=== PATIENT | male | born 1980 | race American Indian/Alaskan Native ===

== ENCOUNTER 2016-11-23 02:30 | Emergency (ER) | payer SELFPAY ==
[2016-11-23 03:31] VITALS: O2SAT 97
[2016-11-23 06:02] VITALS: BP 97/57; PULSE 86; RESP 16; TEMP 97.5
--- NOTE | 2016-11-23 06:06 | C.PDOC ---
History Of Present Illness Patient is a 36 year old male brought to the ER by EMS after he was found intoxicated in front of his friend's porch. Patient is arousable and has no physical complaints at this time. Time Seen by Provider: 11/23/16 03:49 Chief Complaint (Nursing): Dizziness/Lightheaded History Per: Patient History/Exam Limitations: no limitations Onset/Duration Of Symptoms: Hrs Current Symptoms Are (Timing): Still Present Seizure Or Post-ictal Symptoms: None Fall Associated With With Symptoms: No Past Medical History Reviewed: Historical Data, Nursing Documentation, Vital Signs Vital Signs: Last Vital Signs Temp 97.5 F L 11/23/16 06:01 Pulse 86 11/23/16 06:01 Resp 16 11/23/16 06:01 BP 97/57 L 11/23/16 06:01 Pulse Ox 97 11/23/16 06:15 - Medical History PMH: No Chronic Diseases Surgical History: No Surg Hx Family History: States: Unknown Family Hx - Social History Hx Alcohol Use: Yes Hx Substance Use: Yes - Immunization History Hx Tetanus Toxoid Vaccination: No Hx Influenza Vaccination: No Hx Pneumococcal Vaccination: No Review Of Systems Constitutional: Negative for: Fever, Chills Gastrointestinal: Negative for: Nausea, Vomiting, Diarrhea Physical Exam - Physical Exam Appears: Non-toxic, Other (Sleepy but arousable) Skin: Normal Color, Warm, Dry Head: Atraumatic, Normacephalic Oral Mucosa: Moist Chest: Symmetrical, No Tenderness Cardiovascular: Rhythm Regular, No Murmur Respiratory: Normal Breath Sounds, No Rales, No Rhonchi, No Wheezing Gastrointestinal/Abdominal: Soft, No Tenderness Neurological/Psych: Oriented x3, Normal Speech, Normal Cognition ED Course And Treatment O2 Sat by Pulse Oximetry: 97 (Room air) Pulse Ox Interpretation: Normal Medical Decision Making Medical Decision Making: On re-exam, the patient reports improvement of symptoms. A&O x3, ambulatory in the ED with steady gait. Lungs are CTA, heart is RRR, abdomen is soft, non- tender and tolerating PO well. Disposition - Disposition Referrals: [facility] [Outside] Disposition: HOME/ ROUTINE Disposition Time: 06:05 Condition: GOOD Additional Instructions: Follow up with the medical doctor within 1-2 days. Return if worsened. Instructions: Polysubstance Abuse (ED) - Clinical Impression Clinical Impression: Drug abuse - Scribe Statement The provider has reviewed the documentation as recorded by the Scribe Luis [email or web address] All medical record entries made by the Gavinibe were at my direction and personally dictated by me. I have reviewed the chart and agree that the record accurately reflects my personal performance of the history, physical exam, medical decision making, and the department course for this patient. I have also personally directed, reviewed, and agree with the discharge instructions and disposition.
== END 2016-11-23 06:28 | disposition home or self-care (01) ==
LOC: C.ER 02:30
DX: F19.10 Other psychoactive substance abuse, uncomplicated (principal)